=== PATIENT | male | born 2005 | race Hispanic/Latino ===

== ENCOUNTER 2023-10-02 22:36 | Emergency (ER) | payer OTHER ==
[~2023-10-02] VITALS: Ht 162.6 cm; Wt 81.6 kg
[2023-10-02 23:11] LABS: RAPID GROUP A STREP negative (NEGATIVE)
[2023-10-02 23:16] LABS: SARS-CoV-2, RNA, NAAT NEGATIVE SARS CoV-2 (NEGATIVE)
[2023-10-02 23:22] LABS: INFLUENZA TYPE A Negative For Type A (NEGATIVE); INFLUENZA TYPE B Negative For Type B (NEGATIVE)
[2023-10-03 02:19] VITALS: BP 128/76; PULSE 80; RESP 16; O2SAT 98
[2023-10-03] MEDS ORDERED: KETOROLAC 60 MG VIAL (30MG/ML) IM ONE (02:30)
[2023-10-03] MEDS ORDERED: PENICILLIN V POTASSIUM 500 MG TABLET PO ONE (02:30)
[2023-10-03] MEDS ORDERED: PENI500T2 PO (02:33)
== END 2023-10-03 02:46 | disposition home or self-care (01) ==
LOC: EDH 22:36
DX: J03.80 Acute tonsillitis due to other specified organisms (principal); B96.89 Other specified bacterial agents as the cause of diseases classified elsewhere; Z20.822 Contact with and (suspected) exposure to COVID-19
CPT/HCPCS: 99284; 71045; 87635; 87880; 87804 ×2; 96372; C9803; J1885